=== PATIENT | male | born 1955 | race Caucasian/White ===

== ENCOUNTER → 2021-07-10 | Outpatient (CLI) | payer MEDICARE | END | disposition home or self-care (01) | LOC: MSC 11:45 | PROVIDERS: ATTEND Anesthesiology | DX: G89.4 Chronic pain syndrome (principal); G44.89 Other headache syndrome; I10 Essential (primary) hypertension; E78.5 Hyperlipidemia, unspecified; E11.9 Type 2 diabetes mellitus without complications; Z79.84 Long term (current) use of oral hypoglycemic drugs; Z79.899 Other long term (current) drug therapy; Z98.890 Other specified postprocedural states ==

== ENCOUNTER 2021-09-11 12:37 | Outpatient (CLI) | payer MEDICARE | END 2021-09-11 23:59 | disposition home or self-care (01) | LOC: MSC 12:37 | PROVIDERS: ATTEND Anesthesiology | DX: G89.4 Chronic pain syndrome (principal); G44.89 Other headache syndrome; Z79.899 Other long term (current) drug therapy ==

== ENCOUNTER 2021-12-04 13:15 | Outpatient (CLI) | payer MEDICARE | END 2021-12-04 23:59 | disposition home or self-care (01) | LOC: MSC 13:15 | PROVIDERS: ATTEND Anesthesiology | DX: R51.9 Headache, unspecified (principal); G89.4 Chronic pain syndrome; Z79.899 Other long term (current) drug therapy; M54.9 Dorsalgia, unspecified; Z98.890 Other specified postprocedural states ==

== ENCOUNTER 2022-03-26 12:00 | Outpatient (CLI) | payer MEDICARE | END 2022-03-26 23:59 | disposition home or self-care (01) | LOC: MSC 12:00 | PROVIDERS: ATTEND Anesthesiology | DX: G89.4 Chronic pain syndrome (principal); G44.89 Other headache syndrome; M54.9 Dorsalgia, unspecified; Z98.890 Other specified postprocedural states ==

== ENCOUNTER 2022-08-20 11:56 | Outpatient (CLI) | payer MEDICARE | END 2022-08-20 23:59 | disposition home or self-care (01) | LOC: MSC 11:56 | PROVIDERS: ATTEND Anesthesiology | DX: G89.4 Chronic pain syndrome (principal); G44.89 Other headache syndrome; M54.9 Dorsalgia, unspecified; Z79.899 Other long term (current) drug therapy ==

== ENCOUNTER 2022-09-03 12:05 | Outpatient (CLI) | payer MEDICARE | END 2022-09-03 23:59 | disposition home or self-care (01) | LOC: MSC 12:05 | PROVIDERS: ATTEND Anesthesiology | DX: G89.4 Chronic pain syndrome (principal); G44.89 Other headache syndrome; M54.9 Dorsalgia, unspecified; Z79.899 Other long term (current) drug therapy ==

== ENCOUNTER 2022-09-24 10:50 | Day surgery (SDC) | payer MEDICARE ==
[~2022-09-24 10:50] MED LIST: BETA ACET/BET NA PHOS MDV 6 MG/ML VIAL ONE; BUPIVACAINE 0.5 % PF 150 MG/30 ML VIAL ONE; IOHEXOL 240MG/ML 50 ML IV ONE; LIDOCAINE 1% INJ 50 ML MDV IJ ONE; dexaMETHasone SOD PHOSPHATE 10 MG/ML VIAL ONE
== END 2022-09-24 12:55 | disposition home or self-care (01) ==
LOC: DS 10:50
PROVIDERS: ATTEND Anesthesiology
DX: G57.02 Lesion of sciatic nerve, left lower limb (principal); M54.50 Low back pain, unspecified; M47.816 Spondylosis without myelopathy or radiculopathy, lumbar region; G89.4 Chronic pain syndrome; Z79.899 Other long term (current) drug therapy
CPT/HCPCS: 20552; 77002; 82962; J3490 ×2; J1100; A6402; Q9966; 72170-TC; J0702

== ENCOUNTER 2022-11-19 08:41 | Day surgery (SDC) | payer MEDICARE ==
[2022-11-19] MEDS ORDERED: LIDOCAINE HCL/PF 1% 30 ML SDV ONE (10:32)
[2022-11-19] MEDS ORDERED: methylPREDNISolone ACETATE 80 MG/ML VIAL ONE (10:33)
[2022-11-19] MEDS ORDERED: BUPIVACAINE 0.25% 75 MG/30 ML VIAL ONE (10:33)
[2022-11-19] MEDS ORDERED: IOHEXOL 50 ML IV ONE (10:33)
[2022-11-19] MEDS ORDERED: dexaMETHasone SOD PHOSPHATE 10 MG/ML VIAL ONE (10:33)
[2022-11-19] MEDS ORDERED: ANESTHESIA TRAY IN PYXIS 1 EA TRAY MC ONE (11:05)
== END 2022-11-19 13:35 | disposition home or self-care (01) ==
LOC: DS 08:41
PROVIDERS: ATTEND Anesthesiology
DX: G57.03 Lesion of sciatic nerve, bilateral lower limbs (principal); M54.50 Low back pain, unspecified
CPT/HCPCS: 20552; 72020; J1100; J2704; J3490; J7030; Q9967; J1040

== ENCOUNTER 2023-09-05 09:06 | Day surgery (SDC) | payer MEDICARE ==
[2023-09-05] MEDS ORDERED: methylPREDNISolone ACETATE 80 MG/ML VIAL ONE (09:57)
[2023-09-05] MEDS ORDERED: IOHEXOL 50 ML IV ONE (09:57)
[2023-09-05] MEDS ORDERED: LIDOCAINE HCL/MPF 1% 30 ML VIAL IJ ONE ×2 (09:57→09:58)
[2023-09-05] MEDS ORDERED: BUPIVACAINE 0.25% 75 MG/30 ML VIAL ONE (09:58)
== END 2023-09-05 10:40 | disposition home or self-care (01) ==
LOC: DS 09:06
PROVIDERS: ATTEND Anesthesiology
DX: M54.59 Other low back pain (principal); G89.4 Chronic pain syndrome; R51.9 Headache, unspecified; G57.03 Lesion of sciatic nerve, bilateral lower limbs; M47.817 Spondylosis without myelopathy or radiculopathy, lumbosacral region; Z79.899 Other long term (current) drug therapy
CPT/HCPCS: G0260; 72202-TC; 82962-TC; J1010; J3490; Q9967